=== PATIENT | female | born 1985 | race Caucasian/White ===

== ENCOUNTER 2017-12-04 13:51 | Emergency (ER) | payer BC, OTHER ==
[2017-12-04 13:51] VITALS: BMI 26.9
[2017-12-04 14:31] VITALS: BP 109/74; PULSE 70; RESP 16; TEMP 98.3; O2SAT 100
[2017-12-04] MEDS ORDERED: Naproxen 500 MG TAB PO ONE (15:58)
--- NOTE | 2017-12-04 17:03 | RAD ---
PROCEDURE: Right small finger radiographs. HISTORY: trauma COMPARISON: None. TECHNIQUE: AP radiograph of the right hand, as well as spot oblique and lateral images of small finger were obtained. FINDINGS: RIGHT SMALL FINGER: Normal right small finger, without acute fracture or focal lesion. Remainder of the right hand (as seen on the AP view) grossly unremarkable. JOINTS: Normal. SOFT TISSUES: There is diffuse soft tissue swelling in the 5th finger. OTHER FINDINGS: None. IMPRESSION: No acute fracture or dislocation. Diffuse soft tissue swelling in the 5th finger.
--- NOTE | 2017-12-04 17:41 | ED PDOC ---
Upper Extremity Pain/Injury Time Seen by Provider: 12/04/17 15:46 Chief Complaint (Nursing): Finger,Hand,&Wrist Chief Complaint (Provider): Finger pain and swelling History Per: Patient History/Exam Limitations: no limitations Onset/Duration Of Symptoms: Days (x1) Current Symptoms Are (Timing): Still Present Quality: "Pain" Additional Complaint(s): Sid Camarillo is a 31 year old female, with no significant past medical history, who presents to the emergency department complaining of an atraumatic right 5th digit pain and swelling onset since yesterday. Patient took motrin with no relief. She denies any numbness, tingling, rash, redness, discharge, fever or chills. No further medical complaints. PMD: None provided. Past Medical History Reviewed: Historical Data, Nursing Documentation, Vital Signs Vital Signs: Last Vital Signs Temp 98.3 F 12/04/17 14:28 Pulse 70 12/04/17 14:28 Resp 16 12/04/17 14:28 BP 109/74 12/04/17 14:28 Pulse Ox 100 12/04/17 14:28 - Medical History PMH: Deep Vein Thrombosis - Surgical History Surgical History: Appendectomy - Family History Family History: States: Unknown Family Hx - Home Medications Home Medications: Ambulatory Orders Medication Instructions Recorded Docusate [Colace] 100 mg PO BID #30 cap 07/22/15 Oxycodone HCl/Acetaminophen 1 tab PO Q6 #30 tab 07/22/15 [Percocet 325 mg-5 mg] Meloxicam [Mobic] 7.5 mg PO DAILY PRN #10 tab 12/04/17 - Allergies Allergies/Adverse Reactions: Allergies Allergy/AdvReac Type Severity Reaction Status Date / Time clindamycin Allergy RASH Verified 12/04/17 14:28 Review of Systems ROS Statement: Except As Marked, All Systems Reviewed And Found Negative Constitutional: Negative for: Fever, Chills Musculoskeletal: Positive for: Hand Pain (right 5th digit pain and swelling) Skin: Negative for: Rash Neurological: Negative for: Numbness (tingling) Physical Exam - Reviewed Nursing Documentation Reviewed: Yes Vital Signs Reviewed: Yes - Physical Exam Appears: Positive for: Well, Non-toxic, No Acute Distress Head Exam: Positive for: ATRAUMATIC, NORMAL INSPECTION, NORMOCEPHALIC Skin: Positive for: Normal Color, Warm, Dry. Negative for: Rash Eye Exam: Positive for: Normal appearance Neck: Positive for: Painless ROM Extremity: Positive for: Normal ROM (upper extremities), Tenderness (Right 5th digit moderate tenderness to the PIP.), Swelling (moderate on right 5th digit). Negative for: Deformity, Other (No erythema, warmth or break in skin integrity or rash to the entire right hand.) Neurologic/Psych: Positive for: Alert, Oriented. Negative for: Motor/Sensory Deficits - ECG O2 Sat by Pulse Oximetry: 100 (RA) Pulse Ox Interpretation: Normal Medical Decision Making Medical Decision Making: Initial Impression: arthralgia Initial Plan: --Naproxen 500 mg PO --Hand right 5th digit (Finger) [RAD] --Reevaluation 16:32 Hand X-Ray FINDINGS: RIGHT SMALL FINGER: Normal right small finger, without acute fracture or focal lesion. Remainder of the right hand (as seen on the AP view) grossly unremarkable. JOINTS: Normal. SOFT TISSUES: There is diffuse soft tissue swelling in the 5th finger. OTHER FINDINGS: None. IMPRESSION: No acute fracture or dislocation. Diffuse soft tissue swelling in the 5th finger. -Patient was placed on finger splint and was advised to follow up with orthopedist. ~ Scribe Attestation: Documented by Devin Hancock, acting as a scribe for Larry Adler PA-C. Provider Scribe Attestation: All medical record entries made by the Scribe were at my direction and personally dictated by me. I have reviewed the chart and agree that the record accurately reflects my personal performance of the history, physical exam, medical decision making, and the department course for this patient. I have also personally directed, reviewed, and agree with the discharge instructions and disposition. Disposition - Clinical Impression Clinical Impression: Arthralgia - Disposition Referrals: [facility] [Outside] Santa Chavira MD [Staff Provider] - Ish Becker MD [Staff Provider] - Disposition: Routine/Home Disposition Time: 17:30 Condition: STABLE Additional Instructions: Follow up with Dr. Darren Nicole or Dr. Becker for further evaluation. Return to ED immediately for any concerns. Prescriptions: Meloxicam [Mobic] 7.5 mg PO DAILY PRN #10 tab PRN Reason: Pain, Mild (1-3) Instructions: Joint Pain Forms: [employer] (Telugu) Print Language: [id number]
== END 2017-12-04 17:36 | disposition home or self-care (01) ==
LOC: H.ER 13:51
DX: M79.644 Pain in right finger(s) (principal); Z86.718 Personal history of other venous thrombosis and embolism